=== PATIENT | female | born 1995 | race Caucasian/White ===

== ENCOUNTER 2023-03-20 23:33 | Emergency (ER) | payer OTHER ==
[~2023-03-20] VITALS: Ht 172.7 cm; Wt 55.3 kg
[2023-03-21 00:24] VITALS: BP 128/84
[2023-03-21] MEDS ORDERED: IBUP-1493 PO (03:52)
== END 2023-03-21 04:22 | disposition home or self-care (01) ==
LOC: EDH 23:33
DX: S00.03XA Contusion of scalp, initial encounter (principal); S50.01XA Contusion of right elbow, initial encounter; D18.09 Hemangioma of other sites; Z88.1 Allergy status to other antibiotic agents; Z88.2 Allergy status to sulfonamides; W18.39XA Other fall on same level, initial encounter; Y93.89 Activity, other specified; Y92.89 Other specified places as the place of occurrence of the external cause; Y99.8 Other external cause status
CPT/HCPCS: 70450; 70486; 72125; 81025